=== PATIENT | female | born 1995 | race Caucasian/White ===

== ENCOUNTER 2017-01-13 09:25 | Emergency (ER) | payer BC ==
[2017-01-13 09:41] VITALS: BP 132/81
[2017-01-13] MEDS ORDERED: BSS OPTH.SOL* BTL ONE (09:56)
[2017-01-13] MEDS ORDERED: Tetracaine 0.5% OPTH.SOL 15ML* BTL ONE (09:56)
[2017-01-13] MEDS ORDERED: Fluorescein Sodium TOPICAL* 1 MG TEST ONE (09:57)
--- NOTE | 2017-01-13 10:36 | UC ---
Rubi Wallace Matthew, scribed for Alvina Solis DO on 01/13/17 at 1008 . Eye Complaint HPI - HPI Summary HPI Summary: A 21 y/o female presents to [facility] with bilateral eye discomfort since last night. Associated symptoms include foreign body sensation, scratchiness, swollen , productive cough - since 01/10, rhinorrhea - since 01/10, sinus congestion, and chest pain only with cough. The patient denies nausea, vomiting, diarrhea, abdominal pain, headache, and rashes. Saline eye drops moderately improved her symptoms. The patient's roommate is currently being treated for conjunctivitis with rash. FHx of [place] at 43 and [place]. - History of Current Complaint Chief Complaint: UCEye Stated Complaint: EYE COMPLAINT Time Seen by Provider: 01/13/17 09:43 Hx Obtained From: Patient Hx Last Menstrual Period: 01/02/17 ?: No Onset/Duration: Lasting Days - since last night, Still Present Timing: Constant Severity Initially: Mild Severity Currently: Mild Pain Intensity: 0 Pain Scale Used: 0-10 Numeric Location of Injury: Conjunctiva Character: Foreign Body Sensation Aggravating Factor(s): Nothing Alleviating Factor(s): Eye Drops Associated Signs And Symptoms: Positive: Drainage (Clear), Swelling. Negative: Photophobia, Vision Impairment Bilateral, Vision Impairment Right, Vision Impairment Left, Fever - Risk Factors Penetrating Injury Risk Factor: Negative - Allergies/Home Medications Allergies/Adverse Reactions: Allergies Allergy/AdvReac Type Severity Reaction Status Date / Time No Known Allergies Allergy Unverified 06/19/14 14:38 PMH/Surg Hx/FS Hx/Imm Hx - Additional Past Medical History Additional PMH: adha Psychological History Of: Reports: Anxiety - Surgical History Surgical History: Yes Surgery Procedure, Year, and Place: wisdom teeth 2015 - Family History Known Family History: Positive: Cardiac Disease - [place] before the age of 50 Family History: FHx of [place] - Social History Occupation: Student Alcohol Use: None Substance Use Type: None Smoking Status (MU): Never Smoked Tobacco Review of Systems Constitutional: Negative Skin: Negative Eyes: Other - FB sensation, scratchy eye bilateral, swelling bilateral ENT: Nasal Discharge, Other - sinus congestion Respiratory: Cough Cardiovascular: Chest Pain - only with cough Gastrointestinal: Negative Genitourinary: Negative Motor: Negative Neurovascular: Negative Musculoskeletal: Negative Neurological: Negative Psychological: Negative All Other Systems Reviewed And Are Negative: Yes Physical Exam Triage Information Reviewed: Yes Appearance: Well-Appearing, No Pain Distress, Well-Nourished Vital Signs: Initial Vital Signs Temp 97.7 F 01/13/17 09:32 Pulse 84 01/13/17 09:32 Resp 18 01/13/17 09:32 BP 132/81 01/13/17 09:32 Pulse Ox 100 01/13/17 09:32 Vital Signs Reviewed: Yes Eyes: Positive: Conjunctiva Inflamed - minimal, Discharge, Other: - Minimal swelling of the eyes bilaterally; No fluorescein uptake ENT: Positive: Hearing grossly normal, Pharynx normal, Nasal congestion, Nasal drainage, TMs normal, Other: - bilateral maxillary sinus tenderness. Negative: Muffled/hoarse voice Neck: Positive: Supple Respiratory: Positive: Lungs clear, Normal breath sounds, No respiratory distress, No accessory muscle use Cardiovascular: Positive: RRR, No Murmur Musculoskeletal Exam: Normal Musculoskeletal: Positive: Strength Intact Neurological: Positive: Alert, Muscle Tone Normal Psychological: Positive: Age Appropriate Behavior Skin Exam: Normal, Other - warm, dry, normal color Eye Complaint Course/Dx - Differential Dx/Diagnosis Differential Diagnosis/HQI/PQRI: Conjunctivitis, Corneal Abrasion, Foreign Body Provider Diagnoses: conjunctivitis, sinusitis Discharge - Discharge Plan Condition: Stable Disposition: HOME Prescriptions: Polymyx/Trimethoprim OPTH* [Polytrim OPHTH*] 1 drop LEFT EYE Q3H #1 btl Patient Education Materials: Sinusitis (ED), Conjunctivitis (ED) Referrals: Desi Mckeon MD [Primary Care Provider] - If Needed Additional Instructions: TRY USING THE NETTI POT IN THE MORNINGS DISCUSSED. YOU MUST ALWAYS USE CLEAN WATER. REMEMBER, POSTURE IS AN IMPORTANT FACTOR IN SINUS DRAINAGE. MOVE YOUR NECK, BREATHE. EXPECTORANT MEDICATION: An expectorant medicine has been prescribed. This type of drug makes mucous thinner, helping the sinuses, nose, and bronchial tubes to remain free of pus and mucous. Expectorants make a cough less severe and more comfortable, and help infected sinuses drain. In general, antihistamines defeat the purpose of the expectorant by making mucous thicker. They should be avoided unless specifically recommended by your physician. The documentation as recorded by the Rubi bermudez Matthew accurately reflects the service I personally performed and the decisions made by me, Alvina Solis DO.
== END 2017-01-13 10:33 | disposition home or self-care (01) ==
LOC: UCEAST 09:25
DX: H10.9 Unspecified conjunctivitis (principal); J32.9 Chronic sinusitis, unspecified; F41.9 Anxiety disorder, unspecified
CPT/HCPCS: 99212; A9270-GY; G0463

== ENCOUNTER 2019-06-19 14:18 | Emergency (ER) | payer BC ==
[2019-06-19 15:26] LABS: Urine Appearance Clear; Urine Bacteria 3+ (Absent); Urine Bilirubin Negative (Negative); Urine Blood Negative (Negative); Urine Color Straw; Urine Glucose Negative (Negative); Urine Ketones 1+ (Negative); Urine Nitrite Negative (Negative); Urine Protein Negative (Negative); Urine Red Blood Cell Trace(0-2/hpf) (Absent); Urine Specific Gravity 1.006 (1.010-1.030); Urine Squamous Epithelial Cell Present (Absent); Urine Urobilinogen Negative (Negative); Urine White Blood Cell 1+(6-10/hpf) (Absent)
[2019-06-19 16:08] LABS: ABS Eosinophils 0.2 10^3/ul (0-0.6); ABS Lymphocytes 1.8 10^3/ul (1.0-4.8); ABS Monocytes 0.5 10^3/ul (0-0.8); Eosinophil % 2.7 %; Hematocrit 38 % (35-47); Hemoglobin 12.9 g/dL (12.0-16.0); Lymphocyte % 21.2 %; Mean Corpuscular HGB Conc 34 g/dL (31-36); Mean Corpuscular Hemoglobin 27 pg (27-31); Mean Corpuscular Volume 80 fL (80-97); Mean Platelet Volume 8.1 fL (7.4-10.4); Platelet Count 320 10^3/uL (150-450); Red Blood Count 4.72 10^6 /uL (3.70-4.87); Red Cell Distribution Width 15 % (10-15); White Blood Count 8.5 10^3/uL (3.5-10.8)
[2019-06-19 16:30] LABS: Albumin 4.3 g/dL (3.2-5.2); Albumin/Globulin Ratio 1.4 (1-3); Calcium 9.5 mg/dL (8.6-10.3); EGFR Non-African American 118.2 (>60); Globulin 3.1 g/dL (2-4); Potassium 3.8 mmol/L (3.5-5.0); Total Bilirubin 0.3 mg/dL (0.2-1.0); Total Protein 7.4 g/dL (6.4-8.9)
--- NOTE | 2019-06-19 17:05 | ED ---
GI/ HPI - HPI Summary HPI Summary: 23 year old female presents with abdominal pain for the past couple days. She states that she has lower abdominal pain than stated. Quadrant. She states it radiates to her back. She denies any. Does not change with any food. He admits to having decreased appetite. No vomiting. No fevers. Denies any urinary symptoms. No diarrhea constipation. Never had this pain before. No previous belly sutures. Medical conditions. - History of Current Complaint Chief Complaint: EDAbdPain Time Seen by Provider: 06/19/19 16:40 Stated Complaint: ABDOMINAL PAIN PER PT Hx Last Menstrual Period: 01/02/17 Pain Intensity: 5 - Allergy/Home Medications Allergies/Adverse Reactions: Allergies Allergy/AdvReac Type Severity Reaction Status Date / Time No Known Allergies Allergy Unverified 06/19/14 14:38 Home Medications: Home Medications Escitalopram * [Lexapro 10 mg (NF)] 10 mg PO DAILY 06/19/19 [History Confirmed 06/19/19] Ethynodiol D-Ethinyl Estradiol [Kelnor ] 1 tab PO DAILY 06/19/19 [History Confirmed 06/19/19] Methylphenidate HCl [Methylphenidate ER] 27 mg PO DAILY 06/19/19 [History Confirmed 06/19/19] PMH/Surg Hx/FS Hx/Imm Hx Endocrine/Hematology History: Denies: Hx Anticoagulant Therapy Respiratory History: Denies: Hx Asthma Musculoskeletal History: Denies: Hx Scoliosis Neurological History: Reports: Hx Headaches Denies: Other Neuro Impairments/Disorders Psychiatric History: Reports: Hx Anxiety - Surgical History Surgery Procedure, Year, and Place: 2015 Infectious Disease History: No Infectious Disease History: Denies: Traveled Outside the [place] in Last 30 Days - Family History Known Family History: Positive: Cardiac Disease - [place] before the age of 50 Family History: FHx of [place] - Social History Alcohol Use: None Substance Use Type: Reports: None Smoking Status (MU): Never Smoked Tobacco Review of Systems Negative: Fever Negative: Chest Pain Negative: Shortness Of Breath Positive: Abdominal Pain, Nausea. Negative: Vomiting, Diarrhea All Other Systems Reviewed And Are Negative: Yes Physical Exam Triage Information Reviewed: Yes Vital Signs On Initial Exam: Initial Vitals Temp Pulse Resp BP Pulse Ox 98.1 F 96 16 145/94 99 06/19/19 14:46 06/19/19 14:46 06/19/19 14:46 06/19/19 14:46 06/19/19 14:46 Vital Signs Reviewed: Yes Appearance: Positive: Well-Appearing Skin: Positive: Warm, Dry Head/Face: Positive: Normal Head/Face Inspection Eyes: Positive: Normal, EOMI, ZAIN, Conjunctiva Clear ENT: Positive: Normal ENT inspection, Pharynx normal, TMs normal Respiratory/Lung Sounds: Positive: Clear to Auscultation, Breath Sounds Present Cardiovascular: Positive: Normal, RRR Abdomen Description: Positive: Soft, Other: - tenderness greatest RUQ, tenderness RLQ and LLQ Bowel Sounds: Positive: Present Musculoskeletal: Positive: Normal Neurological: Positive: Normal Psychiatric: Positive: Normal Diagnostics - Vital Signs Vital Signs Temp Pulse Resp BP Pulse Ox 06/19/19 16:31 98.6 F 88 17 140/88 98 06/19/19 14:46 98.1 F 96 16 145/94 99 - Laboratory Lab Results: Lab Results 06/19/19 06/19/19 06/19/19 Range/Units 14:50 15:46 15:46 WBC 8.5 (3.5-10.8) 10^3/uL RBC 4.72 (3.70-4.87) 10^6 /uL Hgb 12.9 (12.0-16.0) g/dL Hct 38 (35-47) % MCV 80 (80-97) fL MCH 27 (27-31) pg MCHC 34 (31-36) g/dL RDW 15 (10-15) % Plt Count 320 (150-450) 10^3/uL MPV 8.1 (7.4-10.4) fL Neut % (Auto) 70.4 % Lymph % (Auto) 21.2 % [place] % (Auto) 5.5 % Eos % (Auto) 2.7 % Baso % (Auto) 0.2 % Absolute Neuts (auto) 6.0 (1.5-7.7) 10^3/ul Absolute Lymphs (auto) 1.8 (1.0-4.8) 10^3/ul Absolute Monos (auto) 0.5 (0-0.8) 10^3/ul Absolute Eos (auto) 0.2 (0-0.6) 10^3/ul Absolute Basos (auto) 0.0 (0-0.2) 10^3/ul Absolute Nucleated RBC 0.0 10^3/ul Nucleated RBC % 0.0 Sodium 138 (135-145) mmol/L Potassium 3.8 (3.5-5.0) mmol/L Chloride 106 (101-111) mmol/L Carbon Dioxide 24 (22-32) mmol/L Anion Gap 8 (2-11) mmol/L BUN 12 (6-24) mg/dL Creatinine 0.63 (0.51-0.95) mg/dL Est GFR ( Amer) 143.0 (>60) Est GFR (Non-Af Amer) 118.2 (>60) BUN/Creatinine Ratio 19.0 (8-20) Glucose 89 (70-100) mg/dL Calcium 9.5 (8.6-10.3) mg/dL Total Bilirubin 0.30 (0.2-1.0) mg/dL AST 27 (13-39) U/L ALT 51 (7-52) U/L Alkaline Phosphatase 69 (34-104) U/L Total Protein 7.4 (6.4-8.9) g/dL Albumin 4.3 (3.2-5.2) g/dL Globulin 3.1 (2-4) g/dL Albumin/Globulin Ratio 1.4 (1-3) Urine Color Straw Urine Appearance Clear Urine pH 7.0 (5-9) Ur Specific [place] 1.006 L (1.010-1.030) Urine Protein Negative (Negative) Urine Ketones 1+ A (Negative) Urine Blood Negative (Negative) Urine Nitrate Negative (Negative) Urine Bilirubin Negative (Negative) Urine Urobilinogen Negative (Negative) Ur Leukocyte Esterase 1+ A (Negative) Urine WBC (Auto) 1+(6-10/hpf) A (Absent) Urine RBC (Auto) Trace(0-2/hpf) (Absent) Ur Squamous Epith Cells Present A (Absent) Urine Bacteria 3+ A (Absent) Urine Glucose Negative (Negative) Result Diagrams: 06/19/19 15:46 06/19/19 15:46 Lab Statement: Any lab studies that have been ordered have been reviewed, and results considered in the medical decision making process. - Ultrasound No standard instances Ultrasound Interpretation Completed By: Radiologist Summary of Ultrasound Findings: IMPRESSION: #. Negative RIGHT upper quadrant ultrasound. GIGU Course/Dx - Course Course Of Treatment: 23 year old female presents with abdominal pain for the past couple days. She states that she has lower abdominal pain than stated. Quadrant. She states it radiates to her back. She denies any. Does not change with any food. He admits to having decreased appetite. No vomiting. No fevers. Denies any urinary symptoms. No diarrhea constipation. Never had this pain before. No previous belly sutures. Medical conditions. On exam has tenderness greatest in right upper quadrant. Also has mild right lower and left lower quadrant. Wbc normal. Urine shows potential uti. will treat with Augmentin. gallbladder u/s normal. reexam tenderness in LUQ and RUQ nontender RLQ. discussed results with patient. told if anything changes to return. patient understand and agrees with plan. - Diagnoses Differential Diagnoses - Female: Cholecystitis, Gastroenteritis (Viral), Gastroenteritis (Bacterial), Urinary Tract Infection Provider Diagnoses: Abdominal pain, UTI (urinary tract infection) Discharge ED - Sign-Out/Discharge Documenting (check all that apply): Patient Departure Patient Received Moderate/Deep Sedation with Procedure: No - Discharge Plan Condition: Good Disposition: HOME Prescriptions: Amoxicillin/Clavulanate TAB* [Augmentin TAB 500 mg*] 500 mg PO BID #9 tab Patient Education Materials: Urinary Tract Infection in Women (ED) Referrals: Fabiola Perez MD [Primary Care Provider] - Additional Instructions: Take augmentin twice a day for 5 days, first dose given in ED take tyenlol or ibuprofen every 6 hours as needed for pain Follow up with primary in 7 days Return to ED if develop fever, severe abdominal pain or any new or worsening symptoms - Billing Disposition and Condition Condition: GOOD Disposition: Home - Attestation Statements Provider Attestation: I was available for consult. This patient was seen by the VALENTINE. The patient was not presented to, seen by, or examined by me. Jonatan Ortega MD
[2019-06-19 17:31] LABS: C Reactive Protein 14.16 mg/L (<8.01)
[2019-06-19] MEDS ORDERED: Amoxicillin/Clavulanate TAB* 500 MG PO ONE (18:08)
[2019-06-19 18:20] VITALS: BP 133/78
== END 2019-06-19 18:15 | disposition home or self-care (01) ==
LOC: ED 14:18
DX: N39.0 Urinary tract infection, site not specified (principal); F41.9 Anxiety disorder, unspecified; Z79.899 Other long term (current) drug therapy
CPT/HCPCS: 36415; 76705; 80053; 81003; 81015; 85025; 86140; 87086; 99282; A9270-GY

== ENCOUNTER 2019-06-23 11:43 | Emergency (ER) | payer BC ==
--- OUTSIDE RECORDS SUMMARY | 2019-06-23 11:58 | XMS REPORT | Continuity of Care Document ---
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 Social History Type Date Description Comments Sex Unknown ETOH Use Rarely consumes alcohol Tobacco Use Start: Unknown Patient has never smoked Smoking Status Reviewed: 06/22/19 Patient has never smoked Exercise 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 Tablets History Medications Procto-Med HC apply topically 30units K64.8 Earline Sol, 01/05/2019 - 2.5% two times daily N.P. 06/21/2019 Cream Immunizations Description No Information Available Vital Signs Date Vital Result Comment 06/22/2019 4:03pm Height 64 inches 5'4" Weight 183.38 lb Heart Rate 73 /min BP Systolic 120 mmHg BP Diastolic 72 mmHg Body Temperature 98.2 F O2 % BldC Oximetry 96 % BMI (Body Mass Index) 31.5 kg/m2 01/05/2019 10:54am Height 64.5 inches 5'4.50" Weight 174.00 lb Heart Rate 76 /min BP Systolic 118 mmHg BP Diastolic 70 mmHg Body Temperature 98.4 F O2 % BldC Oximetry 97 % BMI (Body Mass Index) 29.4 kg/m2 Results Test Date Facility Test Result H/L Range Note Urinalysis Profile 06/19/2019 [facility] Urine Color Straw [address] [place] [address] [phone] Urine Appearance Clear Urine Specific [place] 1.006 Low 1.010-1.030 Urine pH 7.0 Normal 5-9 Urine Urobilinogen Negative Negative Urine Ketones 1+ Abnormal Negative Urine Protein Negative Negative Urine Leukocytes 1+ Abnormal Negative Urine Blood Negative Negative Urine Nitrite Negative Negative Urine Bilirubin Negative Negative Urine Glucose Negative Negative Urine White Blood Cell 1+(6-10/hpf) Abnormal Absent Urine Red Blood Cell Trace(0-2/hpf) Absent Urine Bacteria 3+ Abnormal Absent Urine Squamous Epithelial Cell Present Abnormal Absent CBC Auto 06/19/2019 [facility] White Blood 8.5 10^3/uL Normal 3.5-10.[address] [place] [address] [phone] Red Blood Count 4.72 10^6/uL Normal 3.70-4.87 Hemoglobin 12.9 g/dL Normal 12.0-16.0 Hematocrit 38 % Normal 35-47 Mean Corpuscular Volume 80 fL Normal 80-97 Mean Corpuscular Hemoglobin 27 pg Normal 27-31 Mean Corpuscular HGB Conc 34 g/dL Normal 31-36 Red Cell Distribution Width 15 % Normal 10-15 Platelet Count 320 10^3/uL Normal 150-450 Mean Platelet Volume 8.1 fL Normal 7.4-10.4 Abs Neutrophils 6.0 10^3/uL Normal 1.5-7.7 Abs Lymphocytes 1.8 10^3/uL Normal 1.0-4.8 Abs Monocytes 0.5 10^3/uL Normal 0-0.8 Abs Eosinophils 0.2 10^3/uL Normal 0-0.6 Abs Basophils 0.0 10^3/uL Normal 0-0.2 Abs Nucleated RBC 0.0 10^3/uL Granulocyte % 70.4 % Lymphocyte % 21.2 % Monocyte % 5.5 % Eosinophil % 2.7 % Basophil % 0.2 % Nucleated Red Blood Cells % 0.0 Comp Metabolic 06/19/2019 [facility] Sodium 138 mmol/L Normal 135-[address] [place] [address] [phone] Potassium 3.8 mmol/L Normal 3.5-5.0 Chloride 106 mmol/L Normal 101-111 Co2 Carbon Dioxide 24 mmol/L Normal 22-32 Anion Gap 8 mmol/L Normal 2-11 Glucose 89 mg/dL Normal 70-100 Blood Urea Nitrogen 12 mg/dL Normal 6-24 Creatinine 0.63 mg/dL Normal 0.51-0.95 BUN/Creatinine Ratio 19.0 Normal 8-20 Calcium 9.5 mg/dL Normal 8.6-10.3 Total Protein 7.4 g/dL Normal 6.4-8.9 Albumin 4.3 g/dL Normal 3.2-5.2 Globulin 3.1 g/dL Normal 2-4 Albumin/Globulin Ratio 1.4 Normal 1-3 Total Bilirubin 0.30 mg/dL Normal 0.2-1.0 Alkaline Phosphatase 69 U/L Normal 34-104 Alt 51 U/L Normal 7-52 Ast 27 U/L Normal 13-39 Egfr Non- 118.2 >60 Egfr 143.0 >60 1 Laboratory test 06/19/2019 [facility] C Reactive 14.16 mg/L High <8.01 finding [address] [facility] [place] [address] [phone] Urine Culture And 06/19/2019 [facility] Urine Culture SEE RESULT [address] [place] [address] [phone] 1 Because ethnic data is not always readily available, this report includes an eGFR for both -Americans and non- Americans. The National Kidney Disease Education Program (NKDEP) does not endorse the use of the MDRD equation for patients that are not between the ages of 18 and 70, are , have extremes of body size, muscle mass, or nutritional status, or are non- or non-. According to the National Kidney Foundation, irrespective of diagnosis, the stage of the disease is based on the level of kidney function: Stage Description GFR(mL/min/1.73 m(2)) 1 Kidney damage with normal or decreased GFR 90 2 Kidney damage with mild decrease in GFR 60-89 3 Moderate decrease in GFR 30-59 4 Severe decrease in GFR 15-29 5 Kidney failure <15 (or dialysis) 2 SEE RESULT BELOW Name: SIMON GARZA : [address]: Jonatan Ortega MD Acct: [id number] Unit: [id number] AGE: 23 Location: ED Re06/19/19 SEX: F Status: DEP ER SPEC: [id number] [place]: 06/19/19-[address]: Siobhan MCKEON REQ: [id number] RECD: 06/19/19 STATUS: YAHIR DUKES DR: Fabiola Perez MD _ SOURCE: URINE SPDESC: ORDERED: Urine Culture Procedure Result Reported Site Urine Culture Final 06/20/19- 1303 ML No Growth (<1,000 CFU/mL) * ML - Main Lab . END OF REPORT DEPARTMENT OF PATHOLOGY, [address] [place] [address] Austin Araujo M.D. Director [facility] # [id number] Procedures Description No Information Available Medical Devices Description No Information Available Encounters Type Date Location Provider Dx Diagnosis Office Visit 01/05/2019 [facility] Internal Earline Sol K64.8 Other hemorrhoids 11:00a Medicine - [facility] N.PAnuj Assessments Date Code Description Provider 06/22/2019 R10.30 Lower abdominal pain, unspecified Jermaine Reddy NP 06/22/2019 R79.82 Elevated C-reactive protein (CRP) Jermaine Reddy NP 01/05/2019 K64.8 Other hemorrhoids Earlien Sol N.P. Plan of Treatment Future Appointment(s):07/27/2019 4:00 pm - Earline Sol N.P. at [facility] Internal Medicine - [facility]06/22/2019 - Jermaine Reddy NPR10.30 Lower abdominal pain, unspecifiedComments:You can try using warm compresses when having pain. Drink plenty of fluids.Take the antibiotic for three days and if no improvement within a few days stop.R79.82 Elevated C-reactive protein (CRP) Functional Status Description No Information Available Mental Status Description No Information Available Referrals Description No Information Available
--- NOTE | 2019-06-23 13:01 | ED ---
Abdominal Pain/Female - HPI Summary HPI Summary: This pt is a 23 y/o [facility]o bilateral lower abd pain for the past 4 days, significantly worse today. Pt reports she was in the ED 4 days ago for abd pain and was diagnosed with a UTI for which she was placed on antibiotics. She also had a negative gallbladder US. Pt states now her abd pain has localized over both her ovaries. She describes her pain as a constant ache that is aggravated with movement (specifically when she engages those muscles) and then her pain becomes sharp. Today pt states she woke up feeling lightheaded , dizzy, nauseous. Pt denies urinary or bowel symptoms, she states she is urinating normal and moving her bowels. Pt saw her PCP, Earline Sol, yesterday and was scheduled for an transvaginal US in 3 weeks. Pt did not have a pelvic exam or blood work. Denies hx of abd surgeries. LMP: 3 weeks ago. Pt reports her control pills were discontinued in April 2019 after taking them for 1 year and her first period (3 weeks ago) was 1 week late. Additionally notes her period was also painful and heavy. She states she was started on control pills for irregular periods but while on the pills her periods were still irregular and were then discontinued. - History of Current Complaint Chief Complaint: Lauren Stated Complaint: LOW ABD PAIN PER PT Time Seen by Provider: 06/23/19 12:54 Hx Obtained From: Patient Hx Last Menstrual Period: 01/02/17 Onset/Duration: Lasting Days, Still Present, Worse Since - today Severity Currently: Severe Pain Intensity: 7 Pain Scale Used: 0-10 Numeric Location: Other - Lower abdomen Radiates: No Character: Other: - Aching Aggravating Factor(s): Nothing Alleviating Factor(s): Nothing Associated Signs and Symptoms: Positive: Nausea, Other: - POSITIVE: lightheadedness, dizziness. Negative: Fever, Vomiting Allergies/Adverse Reactions: Allergies Allergy/AdvReac Type Severity Reaction Status Date / Time No Known Allergies Allergy Verified 06/23/19 11:48 PMH/Surg Hx/FS Hx/Imm Hx Endocrine/Hematology History: Denies: Hx Anticoagulant Therapy Respiratory History: Denies: Hx Asthma Musculoskeletal History: Denies: Hx Scoliosis Neurological History: Reports: Hx Headaches Denies: Other Neuro Impairments/Disorders Psychiatric History: Reports: Hx Anxiety - Surgical History Surgery Procedure, Year, and Place: wisdom teeth 2016 Infectious Disease History: No Infectious Disease History: Denies: Traveled Outside the [place] in Last 30 Days - Family History Known Family History: Positive: Cardiac Disease - [place] before the age of 50 Family History: FHx of CA - Social History Alcohol Use: None Substance Use Type: Reports: None Smoking Status (MU): Never Smoked Tobacco Review of Systems Negative: Fever, Chills Positive: Abdominal Pain, Nausea Neurological: Other - POSITIVE: lightheadedness, dizziness All Other Systems Reviewed And Are Negative: Yes Physical Exam - Summary Physical Exam Summary: Appearance: The patient is well-nourished in no acute distress and in no acute pain. Skin: The skin is warm and dry, and skin color reflects adequate perfusion. HEENT: The head is normocephalic and atraumatic. The pupils are equal and reactive. The conjunctivae are clear and without drainage. Nares are patent and without drainage. Mouth reveals moist mucous membranes, and the throat is without erythema and exudate. The external ears are intact. The ear canals are patent and without drainage. The tympanic membranes are intact. Neck: The neck is supple with full range of motion and non-tender. There are no carotid bruits. There is no neck vein distension. Respiratory: Chest is non-tender. Lungs are clear to auscultation and breath sounds are symmetrical and equal. Cardiovascular: Heart is regular rate and rhythm. There is no murmur or rub auscultated. There is no peripheral edema and pulses are symmetrical and equal. Abdomen: The abdomen is soft. There are normal bowel sounds heard in all four quadrants and there is no organomegaly palpated. Patient has mild tenderness in her bilateral pelvic side. Musculoskeletal: There is no back tenderness noted. Extremities are non-tender with full range of motion. There is good capillary refill. There is no peripheral edema or calf tenderness elicited. Neurological: Patient is alert and oriented to person, place and time. The patient has symmetrical motor strength in all four extremities. Cranial nerves are grossly intact. Deep tendon reflexes are symmetrical and equal in all four extremities. Psychiatric: The patient has an appropriate affect and does not exhibit any anxiety or depression. Triage Information Reviewed: Yes Vital Signs On Initial Exam: Initial Vitals Temp Pulse Resp BP Pulse Ox 97.5 F 77 16 137/92 99 06/23/19 11:45 06/23/19 11:45 06/23/19 11:45 06/23/19 11:45 06/23/19 11:45 Vital Signs Reviewed: Yes Diagnostics - Vital Signs Vital Signs Temp Pulse Resp BP Pulse Ox 06/23/19 11:45 97.5 F 77 16 137/92 99 - Laboratory Result Diagrams: 06/23/19 14:09 06/23/19 14:09 Lab Statement: Any lab studies that have been ordered have been reviewed, and results considered in the medical decision making process. - Ultrasound No standard instances Ultrasound Interpretation Completed By: Radiologist Summary of Ultrasound Findings: Pelvic US IMPRESSION: Trace amount of free fluid within the pelvis. This may be physiologic within a reproductive age female. No sonographic features of torsion. Please note that partial or intermittent torsion may be sonographically normal. Dr. Santoro has reviewed this report. - Additional Comments Diagnostic Additional Comments: Appendix US, as read by radiologist IMPRESSION: The appendix is not visualized. There is no free or loculated fluid within the right lower quadrant. Dr. Santoro has reviewed this report. Re-Evaluation - Re-Evaluation First Eval Re-Evaluation Time: 15:02 Comment: Discussed results with patient. Patient will be discharged home with dx of abdominal pain. Patient understands and agrees with this plan. Abdominal Pain Fem Course/Dx - Course Course Of Treatment: Ms. Garza presented with bilateral low abdominal pain. She was here a few days ago for apparently right upper quadrant pain and underwent labs and ultrasound of her gallbladder. She was found to have a suggestion of possible infection on UA and started on antibiotics. Her pain is continued but now has moved down low. She is nontoxic in appearance with stable vitals. She had mild diffuse tenderness in her lower abdomen. Labs are unremarkable and ultrasound of her appendix and pelvis was unremarkable. She states that her periods been normal and she's not sexually active. I'm not sure what the etiology is for her lower abdominal pain but recommended symptomatic treatment and close follow-up. - Diagnoses Provider Diagnoses: Abdominal pain Discharge ED - Sign-Out/Discharge Documenting (check all that apply): Patient Departure - Discharge Patient Received Moderate/Deep Sedation with Procedure: No - Discharge Plan Condition: Stable Disposition: HOME Patient Education Materials: Abdominal Pain (ED) Referrals: Fabiola Perez MD [Primary Care Provider] - 3 Days Additional Instructions: FOLLOW-UP WITH YOUR PRIMARY CARE PROVIDER IN 2-3 DAYS FOR YOUR SYMPTOMS. PLEASE RETURN TO THE ER FOR WORSENING OR CHANGING SYMPTOMS. - Billing Disposition and Condition Condition: STABLE Disposition: Home - Attestation Statements Document Initiated by Carina: Yes Documenting Scribe: Laura Espinoza Provider For Whom Carina is Documenting (Include Credential): Khalif Santoro MD Scribe Attestation: Laura Wallace, scribed for Khalif Santoro MD on 06/24/19 at 0847. Scribe Documentation Reviewed: Yes Provider Attestation: The documentation as recorded by the Laura bermudez accurately reflects the service I personally performed and the decisions made by me, Khalif Santoro MD Status of Scribe Document: Viewed
[2019-06-23 14:15] LABS: ABS Eosinophils 0.2 10^3/ul (0-0.6); ABS Monocytes 0.5 10^3/ul (0-0.8); ABS Neutrophils 5.9 10^3/ul (1.5-7.7); Eosinophil % 2.4 %; Hematocrit 39 % (35-47); Hemoglobin 13.1 g/dL (12.0-16.0); Lymphocyte % 23.5 %; Mean Corpuscular HGB Conc 33 g/dL (31-36); Mean Corpuscular Hemoglobin 27 pg (27-31); Mean Corpuscular Volume 81 fL (80-97); Nucleated Red Blood Cells % 0.1; Platelet Count 333 10^3/uL (150-450); Red Blood Count 4.85 10^6 /uL (3.70-4.87); Red Cell Distribution Width 15 % (10-15); White Blood Count 8.7 10^3/uL (3.5-10.8)
[2019-06-23 14:32] LABS: ALT 28 U/L (7-52); Albumin 4.2 g/dL (3.2-5.2); Albumin/Globulin Ratio 1.4 (1-3); Alkaline Phosphatase 66 U/L (34-104); BUN/Creatinine Ratio 14.1 (8-20); Blood Urea Nitrogen 11 mg/dL (6-24); C Reactive Protein 10.95 mg/L (<8.01); CO2 Carbon Dioxide 25 mmol/L (22-32); Calcium 9.2 mg/dL (8.6-10.3); Chloride 107 mmol/L (101-111); EGFR African American 111.7 (>60); EGFR Non-African American 92.4 (>60); Globulin 3.1 g/dL (2-4); Glucose 95 mg/dL (70-100); Sodium 137 mmol/L (135-145); Total Protein 7.3 g/dL (6.4-8.9)
[2019-06-23 14:38] LABS: AST 21 U/L (13-39); Anion Gap 5 mmol/L (2-11); HCG Pregnancy < 0.60 mIU/mL
[2019-06-23 14:50] LABS: Urine Appearance Clear; Urine Bacteria 3+ (Absent); Urine Bilirubin Negative (Negative); Urine Blood Negative (Negative); Urine Color Colorless; Urine Glucose Negative (Negative); Urine Ketones Trace (Negative); Urine Nitrite Negative (Negative); Urine Protein Negative (Negative); Urine Red Blood Cell Trace(0-2/hpf) (Absent); Urine Specific Gravity 1.003 (1.010-1.030); Urine Squamous Epithelial Cell Present (Absent); Urine Urobilinogen Negative (Negative); Urine White Blood Cell Trace(0-5/hpf) (Absent)
[2019-06-23 15:31] VITALS: BP 131/75
== END 2019-06-23 15:26 | disposition home or self-care (01) ==
LOC: ED 11:43
DX: R10.9 Unspecified abdominal pain (principal); Z79.899 Other long term (current) drug therapy
CPT/HCPCS: 36415; 76705; 76856; 80053; 81003; 81015; 83605; 84702; 85025; 86140; 87086; 99282

== ENCOUNTER 2019-09-21 18:10 | Emergency (ER) | payer BC ==
--- OUTSIDE RECORDS SUMMARY | 2019-09-21 18:22 | XMS REPORT | Continuity of Care Document ---
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 150mg Tablets ER 24HR Concerta 1 by mouth 30tabs Earline Varn, 27mg Tablets ER every day N.P. Catalyst 7 Probiotic 1 po daily Unknown Evening Keiser Oil 1 po daily Unknown 500mg Capsules [place] Unknown 125-7.5mg Capsules History Medications Bupropion HCL 1 by mouth once 83tabs F41.1 Earline Sweta, 07/27/2019 - 75mg daily for 3 days, N.P. 08/10/2019 Tablets then 1 tablet bid for 14 days, then 2 tablets bid Immunizations Description No Information Available Vital Signs Date Vital Result Comment 08/10/2019 3:57pm Height 64 inches 5'4" Weight 183.00 lb Heart Rate 101 /min BP Systolic Sitting 120 mmHg BP Diastolic Sitting 72 mmHg Body Temperature 98.2 F O2 % BldC Oximetry 100 % BMI (Body Mass Index) 31.4 kg/m2 07/27/2019 4:02pm Height 64 inches 5'4" Weight 183.38 lb Heart Rate 81 /min BP Systolic 126 mmHg BP Diastolic 78 mmHg Body Temperature 98.4 F O2 % BldC Oximetry 98 % BMI (Body Mass Index) 31.5 kg/m2 Results Test Acquired Date Facility Test Result H/L Range Note GC/Chlamydia 06/25/2019 [facility] Chlamydia Negative Negative Amplified Rna [address] [place] [address] [phone] Neisseria gonorrhoeae (GC) Rachelle Negative Negative CBC Auto 06/23/2019 [facility] White Blood 8.7 10^3/uL Normal 3.5-10.[address] [place] [address] [phone] Red Blood Count 4.85 10^6/uL Normal 3.70-4.87 Hemoglobin 13.1 g/dL Normal 12.0-16.0 Hematocrit 39 % Normal 35-47 Mean Corpuscular Volume 81 fL Normal 80-97 Mean Corpuscular Hemoglobin 27 pg Normal 27-31 Mean Corpuscular HGB Conc 33 g/dL Normal 31-36 Red Cell Distribution Width 15 % Normal 10-15 Platelet Count 333 10^3/uL Normal 150-450 Mean Platelet Volume 8.0 fL Normal 7.4-10.4 Abs Neutrophils 5.9 10^3/uL Normal 1.5-7.7 Abs Lymphocytes 2.0 10^3/uL Normal 1.0-4.8 Abs Monocytes 0.5 10^3/uL Normal 0-0.8 Abs Eosinophils 0.2 10^3/uL Normal 0-0.6 Abs Basophils 0.0 10^3/uL Normal 0-0.2 Abs Nucleated RBC 0.0 10^3/uL Granulocyte % 68.3 % Lymphocyte % 23.5 % Monocyte % 5.7 % Eosinophil % 2.4 % Basophil % 0.1 % Nucleated Red Blood Cells % 0.1 Laboratory test 06/23/2019 [facility] Lactic Acid 0.8 mmol/L Normal 0.5-2.0 1 finding [address] [place] [address] [phone] Comp Metabolic 06/23/2019 [facility] Sodium 137 mmol/L Normal 135-145 Panel [address] [place] [address] [phone] Chloride 107 mmol/L Normal 101-111 Co2 Carbon Dioxide 25 mmol/L Normal 22-32 Glucose 95 mg/dL Normal 70-100 Blood Urea Nitrogen 11 mg/dL Normal 6-24 Creatinine 0.78 mg/dL Normal 0.51-0.95 BUN/Creatinine Ratio 14.1 Normal 8-20 Calcium 9.2 mg/dL Normal 8.6-10.3 Total Protein 7.3 g/dL Normal 6.4-8.9 Albumin 4.2 g/dL Normal 3.2-5.2 Globulin 3.1 g/dL Normal 2-4 Albumin/Globulin Ratio 1.4 Normal 1-3 Total Bilirubin 0.30 mg/dL Normal 0.2-1.0 Alkaline Phosphatase 66 U/L Normal 34-104 Alt 28 U/L Normal 7-52 Egfr Non- 92.4 >60 Egfr 111.7 >60 2 Potassium 4.0 mmol/L Normal 3.5-5.0 Anion Gap 5 mmol/L Normal 2-11 Ast 21 U/L Normal 13-39 Laboratory test 06/23/2019 [facility] C Reactive 10.95 mg/L High <8.01 finding [address] [facility] [place] [address] [phone] HCG < 0.60 mIU/mL 3 Urinalysis Profile 06/23/2019 [facility] Urine Color Colorless [address] [place] [address] [phone] Urine Appearance Clear Urine Specific Orlinda 1.003 Low 1.010-1.030 Urine pH 7.0 Normal 5-9 Urine Urobilinogen Negative Negative Urine Ketones Trace Abnormal Negative Urine Protein Negative Negative Urine Leukocytes 1+ Abnormal Negative Urine Blood Negative Negative Urine Nitrite Negative Negative Urine Bilirubin Negative Negative Urine Glucose Negative Negative Urine White Blood Cell Trace(0-5/hpf) Absent Urine Red Blood Cell Trace(0-2/hpf) Absent Urine Bacteria 3+ Abnormal Absent Urine Squamous Epithelial Cell Present Abnormal Absent Urine Culture And 06/23/2019 [facility] Urine Culture SEE RESULT [address] [place] [address] [phone] Urinalysis Profile 06/19/2019 [facility] Urine Color Straw [address] [place] [address] [phone] Urine Appearance Clear Urine Specific Orlinda 1.006 Low 1.010-1.030 Urine pH 7.0 Normal [...] Cell Present Abnormal Absent CBC Auto 06/19/2019 [facility] White Blood 8.5 10^3/uL Normal 3.5-10.[address] [place] [address] [phone] Red Blood Count 4.72 10^6/uL Normal 3.70-4.87 [...] Blood Cells % 0.0 Comp Metabolic 06/19/2019 [facility] Sodium 138 mmol/L Normal 135-[address] [place] [address] [phone] Potassium 3.8 mmol/L Normal 3.5-5.0 Chloride 106 [...] Egfr Non- 118.2 >60 Egfr 143.0 >60 5 Laboratory test 06/19/2019 [facility] C Reactive 14.16 mg/L High <8.[address] [place] [address] [phone] Urine Culture And 06/19/2019 [facility] Urine Culture SEE RESULT [address] [place] [address] [phone] [facility] Severe Sepsis and Septic Shock Management Bundle Measure requires all lactic acids initially measuring >2.0 mmol/L be repeated. 2 Because ethnic data is not always readily [...] 15-29 5 Kidney failure <15 (or dialysis) 3 <5.0 Negative 5.0 - 25.0 Indeterminate (Repeat testing recommended after 72 hours) >25.0 Positive Perimenopausal women can display HCG levels of up to 20 mIU/mL 4 SEE RESULT BELOW Name: SIMON GARZA : [address]: Khalif Santoro MD Acct: [id number] Unit: [id number] AGE: 23 Location: ED Re06/23/19 SEX: F Status: DEP ER SPEC: [id number] [place]OR[place]: 06/23/[address] [facility] [address]: Khalif Santoro MD REQ: [id number] RECD: 06/23/19 STATUS: YAHIR DUKES DR: Fabiola Perez MD _ SOURCE: URINE SPDESC: ORDERED: Urine Culture Procedure Result Reported Site Urine Culture Final 06/25/19- 0847 ML No Growth (<1,000 CFU/mL) * ML - [facility] . END OF REPORT DEPARTMENT OF PATHOLOGY, [address] [place] [address] Austin Araujo M.D. Director [facility] # [id number] 5 Because ethnic data is not always readily [...] 15-29 5 Kidney failure <15 (or dialysis) 6 SEE RESULT BELOW Name: ANIYAMARCELSIMONE : [address]: Jonatan Ortega MD Acct: [id number] Unit: [id number] AGE: 23 Location: ED Re06/19/19 SEX: F Status: DEP ER SPEC: [id number] [place]OR[place]: 06/19/19-[address] [facility] [address]: Siobhan MCKEON REQ: [id number] RECD: 06/19/19 STATUS: YAHIR DUKES DR: Fabiola Perez MD _ SOURCE: URINE SPDESC: ORDERED: Urine Culture Procedure Result Reported Site Urine Culture Final 06/20/19- 1303 ML No Growth (<1,000 CFU/mL) * ML - Main Lab . END OF REPORT DEPARTMENT OF PATHOLOGY, [address] [place] [address] Austin Araujo M.D. Director [facility] # [id number] Procedures Description No Information Available Medical Devices Description No Information Available Encounters Type Date Location Provider Dx Diagnosis Office Visit 07/27/2019 [facility] Internal Earline Sol, Z00.00 Encntr for general 4:00p Medicine - Ccmob N.P. 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 07/27/2019 Z00.00 Encounter for general adult medical Earline Sol N.P. examination without abnormal findings 07/27/2019 R41.840 Attention and concentration deficit Earline Sol, N.P. 07/27/2019 F41.1 Generalized anxiety disorder Earline Sol, N.P. 07/27/2019 R63.5 Abnormal weight gain Earline Sol, N.P. 06/22/2019 R10.30 Lower abdominal pain, unspecified Jermaine Reddy NP 06/22/2019 R79.82 Elevated C-reactive protein (CRP) Jermaine Reddy NP Plan of Treatment 08/10/2019 - Earline Sol, N.P.F41.1 Generalized anxiety disorderComments:For your anxiety and depression:I have sent in a new prescription for Bupropion 150 mg, this is an extended release tablet so you only have to take it once daily.If you have any issues, please contact the office. Functional Status Description No Information Available Mental Status Description No Information Available Referrals Description No Information Available
--- OUTSIDE RECORDS SUMMARY | 2019-09-21 18:22 | XMS REPORT | Continuity of Care Document ---
:1995 External Reference #:[id number] Author Name Twin Ortez JR, DO (transmitted by agent of provider Viki Christensen ) Address [address] [address] Care Team Providers Name Role Phone Nabor Mckeon M.D. 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/Car Seat Always uses seat belt Allergies, Adverse Reactions, Alerts Description No Known Drug Allergies Medications Active Medications SIG Qnty Indications Ordering Provider Date Concerta Unknown Lexapro Unknown Medications Administered in Office Medication SIG Qnty Indications Ordering Provider Date PT SCRN Tbco Id as Non User Rena Rodriguez MD 08/28/2018 Injection Immunizations Description No Information Available Vital Signs Date Vital Result Comment 07/27/2019 8:40am Height 64.5 inches 5'4.50" 0 06/25/2019 11:18am BP Systolic 132 mmHg BP Diastolic 82 mmHg Height 64.5 inches 5'4.50" Weight 183.00 lb BMI (Body Mass Index) 30.9 kg/m2 Last Menstrual Period [id number] 0 Parity 0 Results Test Acquired Date Facility Test Result H/L Range Note Laboratory test 06/25/2019 [facility] Cytology SEE RESULT 1 [place] [address] BELOW [phone] GC/Chlamydia 06/25/2019 [facility] Chlamydia Negative [place] [address] trachomatis Rachelle [phone] Neisseria gonorrhoeae (GC) Rachelle Negative Negative 1 SEE RESULT BELOW Name: SIMON GARZA : [address]: Twin Ortez DO Acct: [id number] Unit: [id number] AGE: 23 Location: [facility] Re06/25/19 SEX: F Status: REG REF SPEC: [id number] LORET[place]: 06/25/19-[address]: Twin Ortez DO REQ: [id number] RECD: 06/25/19-9145 STATUS: BEN DUKES DR: Desi Mckeon MD _ ORDERED: TP IMAGE ANALYS COMMENTS: [id number] FINAL DIAGNOSIS Negative for Intraepithelial lesion or Malignancy SPECIMEN(S) RECEIVED A. Ectocervical/Endocervical CYTOLOGY ADEQUACY Specimen Adequacy: Satisfactory of evaluation Transformation zone component identified CYTOLOGY PATIENT INFORMATION Patient Information: HPV: Thin Layer Pap Test w/reflex to high risk HPV RNA testing when ASCUS Actual Specimen Date: 06/25/19 Last Menstrual Date: 05/21/19 Spec Date if unknown: never Signed by and Reported on: RODERICK Ordaz(ASCP) [id number] This Pap test was evaluated with the assistance of the GAMINSIDEPrep Test Imaging System. Due to cytologic findings at the psych nurse microscope, comprehensive manual rescreening by a Derrick Follower may be required. The Pap Smear is a screening test designed to aid in the detection of premalignant and malignant conditions of the uterine cervix. It is not a diagnostic procedure and should not be used as the sole means of detecting cervical cancer. Both false- positive and false- negative reports do occur. Depending on your risk status, a Pap smear should be obtained and evaluated every 1-3 years. END OF REPORT DEPARTMENT OF PATHOLOGY, [address] [place] [address] Austin Araujo M.D. 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 11:30a DO (general) (routine) w/o abn findings N92.6 Irregular menstruation, unspecified R10.2 Pelvic and perineal pain Z12.4 Encounter for screening for malignant neoplasm of cervix Assessments Date Code Description Provider 07/27/2019 R10.31 Right lower quadrant pain Ultrasounds 06/25/2019 Z01.419 Encounter for gynecological examination Twin Ortez JR, DO (general) (routine) without abnormal findings 06/25/2019 N92.6 Irregular menstruation, unspecified Twin Ortez JR, DO 06/25/2019 R10.2 Pelvic and perineal pain Twin Ortez JR DO 06/25/2019 Z12.4 Encounter for screening for malignant neoplasm Twin Ortez JR, DO of cervix Plan of Treatment 08/28/2018 - Rena Rodriguez MDN92.5 Other specified irregular menstruationComments:Discussed that irregular bleeding could very likely be hormonal and have nothing to do with the possible polyp. Options to manage include trying a different type of OCP or a LN-IUD. After much discussion pt would like to try an IUD. We reviewed the various types in depth and she is uncertain between Chitocarlosivan and Zulema but will call to let us know before her appt. Reviewed use of ibuprofen beforehand, risks, procedure, and what to expect afterwards.N84.1 Polyp of cervix uteriComments:suspect benign polyp in someone her age. May or may not be the cause of the irregular bleeding. Could plan D&C for removal or could try different hormonal methods to regulate her periods and see if the bleeding improves. Functional Status Description No Information Available Mental Status Description No Information Available Referrals Description No Information Available
--- OUTSIDE RECORDS SUMMARY | 2019-09-21 18:22 | XMS REPORT | Continuity of Care Document ---
:1995 External Reference #:[id number] Author Name Earline Sol N.P. 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 Tablets then 1 tablet bid for 14 days, then 2 tablets bid Concerta 1 by mouth every 30tabs Earline Sol, 27mg Tablets day N.P. ER Catalyst 7 Probiotic 1 po daily Unknown Evening Mckenna Oil 1 po daily Unknown 500mg Capsules [place] Unknown 125-7.5mg Capsules Immunizations Description No Information Available Vital Signs Date Vital Result Comment 07/27/2019 4:02pm Height 64 inches 5'4" Weight 183.38 lb Heart Rate 81 /min BP Systolic 126 mmHg BP Diastolic 78 mmHg Body Temperature 98.4 F O2 % BldC Oximetry 98 % BMI (Body Mass Index) 31.5 kg/m2 06/22/2019 4:03pm Height 64 inches 5'4" Weight 183.38 lb Heart Rate 73 /min BP Systolic 120 mmHg BP Diastolic 72 mmHg Body Temperature 98.2 F O2 % BldC Oximetry 96 % BMI (Body Mass Index) 31.5 kg/m2 Results Test Acquired Date Facility Test Result H/L Range Note GC/Chlamydia 06/25/2019 [facility] Chlamydia Negative Negative Amplified Rna [address] [place] [address] [phone] Neisseria gonorrhoeae (GC) Rachelle Negative Negative CBC Auto 06/23/2019 [facility] White Blood 8.7 10^3/uL Normal 3.5-10.[address] [place] [address] [phone] Red Blood Count 4.85 10^6/uL Normal 3.70-4.87 [...] Blood Cells % 0.1 Laboratory test 06/23/2019 [facility] Lactic Acid 0.8 mmol/L Normal 0.5-2.0 [address] [place] [address] [phone] Comp Metabolic 06/23/2019 [facility] Sodium 137 mmol/L Normal 135-[address] [place], [place] [address] [phone] Chloride 107 mmol/L Normal 101-111 Co2 Carbon [...] 21 U/L Normal 13-39 Laboratory test 06/23/2019 [facility] C Reactive 10.95 mg/L High <8.[address] [place] [address] [phone] HCG < 0.60 mIU/mL 3 Urinalysis Profile 06/23/2019 [facility] Urine Color Colorless [address] [place] [address] [phone] Urine Appearance Clear Urine Specific [place] 1.003 Low 1.010-1.030 Urine pH 7.0 Normal [...] Present Abnormal Absent Urine Culture And 06/23/2019 [facility] Urine Culture SEE RESULT [address] [place] [address] [phone] Urinalysis Profile 06/19/2019 [facility] Urine Color Straw [address] [place] [address] [phone] Urine Appearance Clear Urine Specific [place] 1.006 Low 1.010-1.030 Urine pH 7.0 Normal [...] Cell Present Abnormal Absent CBC Auto 06/19/2019 [facility] White Blood 8.5 10^3/uL Normal 3.5-10.[address] [place] [address] [phone] Red Blood Count 4.72 10^6/uL Normal 3.70-4.87 [...] Blood Cells % 0.0 Comp Metabolic 06/19/2019 [facility] Sodium 138 mmol/L Normal 135-[address] [place] [address] [phone] Potassium 3.8 mmol/L Normal 3.5-5.0 Chloride 106 [...] Egfr 143.0 >60 5 Laboratory test 06/19/2019 [facility] C Reactive 14.16 mg/L High <8.[address] [place] [address] [phone] Urine Culture And 06/19/2019 [facility] Urine Culture SEE RESULT [address] [place] [address] [phone] 1 [facility] Severe Sepsis and Septic Shock Management Bundle [...] [address]: Khalif Santoro MD Acct: [id number] Unit: [id number] AGE: 23 Location: ED Re06/23/19 SEX: F Status: DEP ER SPEC: [id number] LORETTA: 06/23/[address] [facility] [address]: Khalif Santoro MD REQ: [id number] RECD: 06/23/19 STATUS: YAHIR DUKES DR: Fabiola Perez MD _ SOURCE: URINE SPDESC: ORDERED: Urine Culture Procedure Result Reported Site Urine Culture Final 06/25/19- 0847 ML No Growth (<1,000 CFU/mL) * - [facility] . END OF REPORT DEPARTMENT OF PATHOLOGY, [address] [place] [address] Austin Araujo M.D. Director [facility] # [id number] 5 Because ethnic data is not always [...] (or dialysis) 6 SEE RESULT BELOW Name: SIMON GARZA : [address]: Jonatan Ortega MD Acct: [id number] Unit: [id number] AGE: 23 Location: ED Re06/19/19 SEX: F Status: SHY LUONG SPEC: [id number] LORET[place]: 06/19/19-[address]: Siobhan MCKEON REQ: [id number] RECD: 06/19/19-151 STATUS: YAHIR DUKES DR: Fabiola Perez MD _ SOURCE: URINE SPDESC: ORDERED: Urine Culture Procedure Result Reported Site Urine Culture Final 06/20/19- 1303 ML No Growth (<1,000 CFU/mL) * ML - Main Lab . END OF REPORT DEPARTMENT OF PATHOLOGY, [address] [place] [address] Austin Araujo M.D. Director [facility] # [id number] Procedures Description No Information Available Medical Devices Description No Information Available Encounters Type Date Location Provider Dx Diagnosis Office Visit 06/22/2019 [facility] Jermaine Reddy NP R10.30 Lower abdominal 4:00p Medicine - Ccmob pain, unspecified R79.82 Elevated C-reactive protein (CRP) Assessments Date Code Description Provider 07/27/2019 Z00.00 Encounter for general adult medical Earline Sol, N.P. examination without abnormal findings 07/27/2019 R41.840 Attention and concentration deficit Earline Sol, N.P. 07/27/2019 F41.1 Generalized anxiety disorder Earline Sol N.P. 07/27/2019 R63.5 Abnormal weight gain Earline Sol N.P. 06/22/2019 R10.30 Lower abdominal pain, unspecified Jermaine Reddy NP 06/22/2019 R79.82 Elevated C-reactive protein (CRP) Jermaine Reddy NP Plan of Treatment Future Appointment(s):08/10/2019 4:00 pm - Earline [facility].P. at [facility] - Earline Sol N.P.Z00.00 Encounter for general adult medical examination without abnormal findingsComments:For your routine health maintenance: I encourage you to continue with regular exercise and healthy nutrition. I still do not have a record of when you last had a Tetanus immunization. These are only good for 10 years. I would greatly appreciate a record of your immunizations to incorporate into your medical record.R41.840 Attention and concentration deficitComments:For your attention deficit disorder : Continue with your current management. If at any time you feel your symptom are not well controlled, please contact the office.F41.1 Generalized anxiety disorderNew Medication:Bupropion HCL 75 mg - 1 by mouth once daily for 3 days, then 1 tablet bid for 14 days, then 2 tablets bidComments:For your anxiety: I am transitioning you off Escitalopram and onto Bupropion.For the next week take 1/2 tablet of Escitalopram, then a 1/2 tablet every other day for a week, then stop.The instructions for your bupropion are on the label.If you have any issues or concerns, please contact the office.Follow up:F/U 1 weekR63.5 Abnormal weight gainComments:To further evaluate your weight gain I have ordered a thyroid level. I will contact you with your results. Functional Status Description No Information Available Mental Status Description No Information Available Referrals Description No Information Available
--- OUTSIDE RECORDS SUMMARY | 2019-09-21 18:22 | XMS REPORT | Continuity of Care Document ---
:1995 External Reference #:[id number] Author Name Twin Ortez , DO Address [address] [facility], [place] [address] Care Team Providers Name Role Phone Nabor Mckeon M.D. - Pediatrics Care Team Information Cardiac Surgeon Earline Sol Care Team Information Cardiac Surgeon [phone] Problems Description No Active Problems Social History [...] Signs Date Vital Result Comment 07/27/2019 8:40am BP Systolic 122 mmHg BP Diastolic 70 mmHg Height 64.5 inches 5'4.50" Weight 183.00 lb BMI (Body Mass Index) 30.9 kg/m2 Last Menstrual Period [id number] 0 Parity 0 06/25/2019 11:18am BP Systolic 132 mmHg BP Diastolic 82 mmHg Height 64.5 inches 5'4.50" Weight 183.00 lb BMI (Body Mass Index) 30.9 kg/m2 Last Menstrual Period 0030070 0 Parity 0 Results Test Acquired Date Facility Test Result H/L Range Note Laboratory test 06/25/2019 [facility] Cytology SEE RESULT 1 [place] [address] BELOW [phone] GC/Chlamydia 06/25/2019 [facility] Chlamydia Negative [place] [address] trachomatis Rachelle [phone] Neisseria gonorrhoeae (GC) Rachelle Negative Negative 1 SEE RESULT BELOW Name: SIMON GARZA : [address]: Twin Ortez DO Acct: [id number] Unit: [id number] AGE: 23 Location: [facility] Re06/25/19 SEX: F Status: REG REF SPEC: [id number] LORETTA: 06/25/19-[address]: Twin Ortez DO REQ: [id number] RECD: 06/25/19-4545 STATUS: BEN DUKES DR: Desi Mckeon MD _ ORDERED: TP IMAGE ANALYS COMMENTS: [id number] FINAL DIAGNOSIS Negative for Intraepithelial lesion or [...] was evaluated with the assistance of the SwogoPrep Test Imaging System. Due to cytologic findings at the buncher machine microscope, comprehensive manual rescreening by a Computer Teacher may be required. The Pap Smear is [...] years. END OF REPORT DEPARTMENT OF PATHOLOGY, [address] [place] [address] Austin Araujo M.D. Director [facility] # [id number] Procedures Date Code Description Status 07/27/2019 08262 Echography Transvaginal Completed Medical Devices Description No Information Available Encounters Type Date Location Provider Dx Diagnosis Office Visit 07/27/2019 [facility] Twin Ortez JR, R10.31 Right lower 9:00a DO quadrant pain Office Visit 06/25/2019 [facility] Twin Ortez JR, Z01.419 Encntr for ob/gyn doctor exam 11:30a DO (general) (routine) w/o abn findings N92.6 Irregular menstruation, unspecified R10.2 Pelvic and perineal pain Z12.4 Encounter for screening for malignant neoplasm of cervix Assessments Date Code Description Provider 07/27/2019 R10.31 Right lower quadrant pain Twin Ortez JR, DO 07/27/2019 R10.31 Right lower quadrant pain Ultrasounds 06/25/2019 Z01.419 Encounter for gynecological examination Twin Ortez JR DO (general) (routine) without abnormal findings 06/25/2019 N92.6 Irregular menstruation, unspecified Twin Ortez JR, DO 06/25/2019 R10.2 Pelvic and perineal pain Twin Ortez JR, DO 06/25/2019 Z12.4 Encounter for screening for malignant neoplasm Twin Ortez JR DO of cervix Plan of Treatment 08/28/2018 [...] in depth and she is uncertain between Laila and Alvarezlilly but will call to let us know [...]
[2019-09-21 19:34] LABS: ABS Eosinophils 0.1 10^3/ul (0-0.6); ABS Lymphocytes 1.6 10^3/ul (1.0-4.8); ABS Monocytes 0.5 10^3/ul (0-0.8); ABS Neutrophils 5.6 10^3/ul (1.5-7.7); Eosinophil % 1.6 %; Hematocrit 37 % (35-47); Hemoglobin 13.1 g/dL (12.0-16.0); Lymphocyte % 20.7 %; Mean Corpuscular HGB Conc 35 g/dL (31-36); Mean Corpuscular Hemoglobin 28 pg (27-31); Mean Corpuscular Volume 79 fL (80-97); Mean Platelet Volume 7.8 fL (7.4-10.4); Platelet Count 376 10^3/uL (150-450); Red Blood Count 4.67 10^6 /uL (3.70-4.87); Red Cell Distribution Width 13 % (10-15); White Blood Count 7.9 10^3/uL (3.5-10.8)
--- NOTE | 2019-09-21 19:52 | ED ---
Abdominal Pain/Female - HPI Summary HPI Summary: Patient complains of sudden onset abdominal pain this morning with associated nausea and decreased by mouth intake. Patient tolerating fluids. Abdominal pain described as umbilical radiating to right side, progressive and constant. Currently rated severe. Denies fever, cough, sore throat, CP, SOB, V/D, change in urine, change in BM, vaginal symptoms. Medical history is none. Abdominal surgical history is none. Negative for OCP. Denies sexual activity. LMP August 18. - History of Current Complaint Chief Complaint: EDAbdPain Stated Complaint: ABD PAIN PER PT Time Seen by Provider: 09/21/19 19:48 Hx Obtained From: Patient Hx Last Menstrual Period: 01/02/17 Onset/Duration: Sudden Onset, Lasting Hours Timing: Constant Severity Initially: Mild Severity Currently: Moderate Pain Intensity: 5 Pain Scale Used: 0-10 Numeric Location: Discrete At: RUQ, Discrete At: RLQ, Umbilical Radiates: No Character: Dull, Cramping Aggravating Factor(s): Nothing Alleviating Factor(s): Nothing Associated Signs and Symptoms: Positive: Decreased Appetite, Nausea Allergies/Adverse Reactions: Allergies Allergy/AdvReac Type Severity Reaction Status Date / Time No Known Allergies Allergy Verified 09/21/19 18:14 Home Medications: Home Medications buPROPion HCl [Bupropion HCl Xl] 150 mg PO DAILY 09/21/19 [History Confirmed ] PMH/Surg Hx/FS Hx/Imm Hx Endocrine/Hematology History: Denies: Hx Anticoagulant Therapy Cardiovascular History: Denies: Hx Pacemaker/ICD Respiratory History: Denies: Hx Asthma History: Denies: Hx Dialysis Musculoskeletal History: Denies: Hx Scoliosis Sensory History: Denies: Hx Eye Prosthesis Opthamlomology History: Denies: Hx Legally Blind EENT History: Denies: Hx Deafness Neurological History: Reports: Hx Headaches Denies: Other Neuro Impairments/Disorders Psychiatric History: Reports: Hx Anxiety - Surgical History Surgery Procedure, Year, and Place: 2015 Infectious Disease History: No Infectious Disease History: Denies: Traveled Outside the [place] in Last 30 Days - Family History Known Family History: Positive: Cardiac Disease - [place] before the age of 50 Family History: FHx of [place] - Social History Alcohol Use: None Substance Use Type: Reports: None Smoking Status (MU): Never Smoked Tobacco Review of Systems Constitutional: Negative Eyes: Negative ENT: Negative Cardiovascular: Negative Respiratory: Negative Positive: Abdominal Pain, Nausea Genitourinary: Negative Musculoskeletal: Negative Skin: Negative Neurological: Negative Psychological: Normal All Other Systems Reviewed And Are Negative: Yes Physical Exam - Summary Physical Exam Summary: Tenderness in right lower and right upper quadrants. Abdominal exam otherwise unremarkable. Triage Information Reviewed: Yes Vital Signs On Initial Exam: Initial Vitals Temp Pulse Resp BP Pulse Ox 97.6 F 112 15 135/90 100 09/21/19 18:13 09/21/19 18:13 09/21/19 18:13 09/21/19 18:13 09/21/19 18:13 Vital Signs Reviewed: Yes Appearance: Positive: Well-Appearing Skin: Positive: Warm Head/Face: Positive: Normal Head/Face Inspection Eyes: Positive: Normal Neck: Positive: Supple Respiratory/Lung Sounds: Positive: Clear to Auscultation Cardiovascular: Positive: Normal Abdomen Description: Positive: Other: Musculoskeletal: Positive: Normal Neurological: Positive: Normal Psychiatric: Positive: Normal AVPU Assessment: Alert - [place] Coma Scale Best Eye Response: 4 - Spontaneous Best Motor Response: 6 - Obeys Commands Best Verbal Response: 5 - Oriented Coma Scale Total: 15 Procedures - Sedation Patient Received Moderate/Deep Sedation with Procedure: No Diagnostics - Vital Signs Vital Signs Temp Pulse Resp BP Pulse Ox 09/21/19 18:13 97.6 F 112 15 135/90 100 - Laboratory Lab Results: Lab Results 09/21/19 Range/Units 19:23 WBC 7.9 (3.5-10.8) 10^3/uL RBC 4.67 (3.70-4.87) 10^6 /uL Hgb 13.1 (12.0-16.0) g/dL Hct 37 (35-47) % MCV 79 L (80-97) fL MCH 28 (27-31) pg MCHC 35 (31-36) g/dL RDW 13 (10-15) % Plt Count 376 (150-450) 10^3/uL MPV 7.8 (7.4-10.4) fL Neut % (Auto) 71.5 % Lymph % (Auto) 20.7 % [place] % (Auto) 6.0 % Eos % (Auto) 1.6 % Baso % (Auto) 0.2 % Absolute Neuts (auto) 5.6 (1.5-7.7) 10^3/ul Absolute Lymphs (auto) 1.6 (1.0-4.8) 10^3/ul Absolute Monos (auto) 0.5 (0-0.8) 10^3/ul Absolute Eos (auto) 0.1 (0-0.6) 10^3/ul Absolute Basos (auto) 0.0 (0-0.2) 10^3/ul Absolute Nucleated RBC 0.0 10^3/ul Nucleated RBC % 0.0 Result Diagrams: 09/21/19 19:23 09/21/19 19:23 Lab Statement: Any lab studies that have been ordered have been reviewed, and results considered in the medical decision making process. Abdominal Pain Fem Course/Dx - Course Course Of Treatment: Patient complains of sudden onset abdominal pain this morning with associated nausea and decreased by mouth intake. Patient tolerating fluids. Abdominal pain described as umbilical radiating to right side, progressive and constant. Currently rated severe. Denies fever, cough, sore throat, CP, SOB, V/D, change in urine, change in BM, vaginal symptoms. Medical history is none. Abdominal surgical history is none. Negative for OCP. Denies sexual activity. LMP August 18. Vital signs within normal limits. Labs unremarkable. UA not definitive. Ultrasound gallbladder negative. Pelvic ultrasound negative. Patient opted to defer CT abdomen and pelvis and pelvic exam at this time. - Diagnoses Provider Diagnoses: Abdominal pain Discharge ED - Sign-Out/Discharge Documenting (check all that apply): Patient Departure - Discharge Plan Condition: Stable Disposition: HOME Patient Education Materials: Acute Abdominal Pain (ED) Referrals: Earline Sol NP [Primary Care Provider] - Additional Instructions: Urine cultures are pending. You will be informed in a day or 2 if results require treatment. Take Zofran as directed if needed for nausea. Return to the ED for any new or worsening symptoms. - Billing Disposition and Condition Condition: STABLE Disposition: Home
[2019-09-21 19:55] LABS: ALT 10 U/L (7-52); AST 16 U/L (13-39); Albumin 4.2 g/dL (3.2-5.2); Albumin/Globulin Ratio 1.2 (1-3); Alkaline Phosphatase 66 U/L (34-104); Anion Gap 8 mmol/L (2-11); BUN/Creatinine Ratio 14.3 (8-20); Blood Urea Nitrogen 10 mg/dL (6-24); C Reactive Protein 51.04 mg/L (<8.01); CO2 Carbon Dioxide 25 mmol/L (22-32); Calcium 9.3 mg/dL (8.6-10.3); Chloride 104 mmol/L (101-111); EGFR African American 125.5 (>60); EGFR Non-African American 103.7 (>60); Globulin 3.4 g/dL (2-4); Glucose 95 mg/dL (70-100); Potassium 3.8 mmol/L (3.5-5.0); Sodium 137 mmol/L (135-145); Total Protein 7.6 g/dL (6.4-8.9)
[2019-09-21 20:00] LABS: HCG Pregnancy < 0.60 mIU/mL
[2019-09-21 20:11] LABS: Urine Appearance Cloudy; Urine Bilirubin Negative (Negative); Urine Blood Negative (Negative); Urine Color Straw; Urine Glucose Negative (Negative); Urine Ketones Negative (Negative); Urine Nitrite Negative (Negative); Urine Protein Negative (Negative); Urine Specific Gravity 1.005 (1.010-1.030); Urine Urobilinogen Negative (Negative)
[2019-09-21 20:15] LABS: Urine Bacteria 3+ (Absent); Urine Red Blood Cell Absent (Absent); Urine Squamous Epithelial Cell Present (Absent); Urine White Blood Cell 1+(6-10/hpf) (Absent)
[2019-09-21] MEDS ORDERED: Ondansetron TAB* 4 MG PO ONE (22:14)
[2019-09-21 22:41] LABS: Influenza A Molecular NEGATIVE (Negative); Influenza B Molecular NEGATIVE (Negative)
[2019-09-21 23:10] VITALS: BP 134/74
== END 2019-09-21 23:09 | disposition home or self-care (01) ==
LOC: ED 18:10
DX: R10.9 Unspecified abdominal pain (principal); F41.9 Anxiety disorder, unspecified; Z79.899 Other long term (current) drug therapy
CPT/HCPCS: 36415; 76705; 76856; 80053; 81003; 81015; 83605; 83690; 84702; 85025; 86140; 87086; 99283; A9270-GY